=== PATIENT | female | born 1995 | race American Indian/Alaskan Native ===

== ENCOUNTER 2018-08-28 15:22 | Emergency (ER) | payer OTHER ==
[2018-08-28 15:45] VITALS: BP 132/91
[2018-08-28] MEDS ORDERED: TETRACAINE 0.5% OU ONE (15:45)
[2018-08-28] MEDS ORDERED: FUL-GLO OP ONE (15:45)
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
[2018-08-28] MEDS ORDERED: TOBREX OU ONE (16:00)
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
[2018-08-28] MEDS ORDERED: PERCOCET 5/325 PO ONE (17:50)
== END 2018-08-28 17:59 | disposition home or self-care (01) ==
LOC: ED 15:22
DX: H16.9 Unspecified keratitis (principal); Z88.6 Allergy status to analgesic agent; Z88.2 Allergy status to sulfonamides
CPT/HCPCS: 99283